=== PATIENT | female | born 1955 | race Two or more races ===

== ENCOUNTER 2023-10-05 22:12 | Inpatient (IN) | payer OTHER ==
[~2023-10-05] VITALS: Ht 167.6 cm; Wt 100.6 kg
[2023-10-06] VITALS (9 sets, daily range): BP systolic 110–148; BP diastolic 60–78; PULSE 52–70; RESP 14–20; TEMP 97.7–98.8; O2SAT 94–99
[2023-10-06] MEDS ORDERED: ONDANSETRON HCL 4 MG/2 ML VIAL IV PRN (00:45)
[2023-10-06] MEDS: SODIUM CHLORIDE 0.9% 1,000 ML IV SCH (00:45)
[2023-10-06] MEDS ORDERED: HYDROcodone-ACET 5/325MG TAB PO PRN (00:45)
[2023-10-06] MEDS ORDERED: MORPHINE SULFATE INJ 2 MG/ml SYRG IV PRN (00:45)
[2023-10-06] MEDS ORDERED: DEXTROSE (50%) 50ML SYRG IV PRN (00:45)
[2023-10-06] MEDS ORDERED: NITROGLYCERIN 0.4 MG SL TAB SL PRN (00:45)
[2023-10-06] MEDS: InsuLIN REG 1unit/0.01ml Soln (100units/ml) SC SCH (06:03)
[2023-10-06] MEDS: ACCU-CHEK COMFORT CURVE STRIP VI SCH (06:03)
[2023-10-06] MEDS ORDERED: METF-370 PO (06:29)
[2023-10-06] MEDS ORDERED: VORT1TAB3 PO (06:29)
[2023-10-06] MEDS ORDERED: ASPI-325 PO (06:29)
[2023-10-06] MEDS ORDERED: ATOR10TA52 PO (06:29)
[2023-10-06] MEDS ORDERED: METO-159 PO (06:29)
[2023-10-06] MEDS ORDERED: LISI-275 PO (06:29)
[2023-10-06 06:48] LABS: Basophils # (auto) 0.1 10 ^3/uL (0-0.2); Basophils % (auto) 0.7 % (0.0-2.0); Eosinophils # (auto) 0.4 10 ^3/uL (0-0.8); Eosinophils % (auto) 4.8 % (0.0-7.0); Hematocrit 33.5 % (36.0-46.0); Hemoglobin 11.4 g/dL (12.2-16.2); Lymphocytes # (auto) 2.6 10 ^3/uL (0.4-5.4); Lymphocytes % (auto) 29.4 % (10.0-50.0); Mean Corpuscular Hemoglobin 33.3 pg (28.0-32.0); Mean Corpuscular Volume 98.1 fL (80.0-100.0); Monocytes # (auto) 0.5 10 ^3/uL (0-1.3); Monocytes % (auto) 5.9 % (0.0-12.0); Neutrophils # (auto) 5.3 10 ^3/uL (1.6-8.6); Neutrophils % (auto) 59.2 % (37.0-80.0); Nucleated Red Blood Cells % 0.2 %; Red Blood Cells 3.41 10^6/uL (4.0-5.20); Red Cell Distribution Width 12.9 % (11.8-14.3); White Blood Cell 8.9 10^3/uL (4.4-10.8)
[2023-10-06 07:01] LABS: Anion Gap 7 (5-15); Carbon Dioxide 24 mmol/L (20-30); Chloride 109 mmol/L (98-107); Potassium 2.9 mmol/L (3.5-5.1); Sodium 140 mmol/L (136-145)
[2023-10-06 07:03] LABS: Calcium 8.8 mg/dL (8.5-10.1)
[2023-10-06 07:07] LABS: BUN/Creatinine Ratio 13.4 (10.0-20.0); Blood Urea Nitrogen 15 mg/dL (9-23); Glucose 101 mg/dL (74-106)
[2023-10-06] MEDS: HEPARIN SODIUM (PORCINE) 5000 UNITS/ML 1ML VIAL SC SCH (10:23)
[2023-10-06] MEDS ORDERED: HYDR25TA4 PO (10:35)
[2023-10-06] MEDS: POTASSIUM EFFERVESENT TAB 25 MEQ PO ONE (12:41)
[2023-10-06] MEDS: POTASSIUM CHL 20MEQ/100ML 100 ML IV SCH (12:41)
[2023-10-06] MEDS: POTASSIUM CHL 20MEQ/100ML 100 ML IV ONE (20:30)
[2023-10-06] MEDS: MAGNESIUM OXIDE 400 MG TAB PO SCH (21:57)
[2023-10-06] MEDS: CHOLESTYRAMINE 4 GM POWDER PO SCH (21:58)
[2023-10-07] VITALS (10 sets, daily range): BP systolic 126–166; BP diastolic 69–91; PULSE 55–78; RESP 16–20; TEMP 97.9–98.5; O2SAT 93–99
[2023-10-07 07:22] LABS: Basophils # (auto) 0 10 ^3/uL (0-0.2); Basophils % (auto) 0.8 % (0.0-2.0); Eosinophils # (auto) 0.4 10 ^3/uL (0-0.8); Hematocrit 33.1 % (36.0-46.0); Hemoglobin 11.5 g/dL (12.2-16.2); Lymphocytes # (auto) 2.2 10 ^3/uL (0.4-5.4); Lymphocytes % (auto) 35.2 % (10.0-50.0); Mean Corpuscular Hemoglobin 33.7 pg (28.0-32.0); Mean Corpuscular Hgb Conc. 34.7 g/dL (32.0-36.0); Monocytes # (auto) 0.4 10 ^3/uL (0-1.3); Neutrophils # (auto) 3.2 10 ^3/uL (1.6-8.6); Red Blood Cells 3.41 10^6/uL (4.0-5.20); White Blood Cell 6.2 10^3/uL (4.4-10.8)
[2023-10-07 07:33] LABS: Chloride 109 mmol/L (98-107); Potassium 3.5 mmol/L (3.5-5.1); Sodium 141 mmol/L (136-145)
[2023-10-07 07:34] LABS: Anion Gap 9 (5-15); Carbon Dioxide 23 mmol/L (20-30)
[2023-10-07 07:35] LABS: Calcium 8.9 mg/dL (8.5-10.1)
[2023-10-07 07:40] LABS: Glucose 99 mg/dL (74-106)
[2023-10-07 07:41] LABS: BUN/Creatinine Ratio 9.4 (10.0-20.0); Blood Urea Nitrogen 9 mg/dL (9-23)
[2023-10-07 07:50] LABS: CRP High Sensitivity 1.05 mg/dL (<1.0)
[2023-10-07 08:46] LABS: Erythrocyte Sedimentation Rate 34 mm/hr (0-20)
[2023-10-07] MEDS: DOCUSATE SOD 100 MG CAP PO PRN (10:19)
[2023-10-07 10:28] LABS: Urine Bacteria None Seen /hpf (None Seen)
[2023-10-07 11:17] LABS: Urine Blood Negative /uL (Negative); Urine Clarity Clear (Clear); Urine Color Colorless (Yellow); Urine Protein, UAD Negative (Negative); Urine Specific Gravity 1.009 (1.001-1.035); Urine Urobilinogen Normal (Negative); Urine WBC 1 /hpf (0 - 5)
[2023-10-07] MEDS: DOBUTamine 1000MCG/ML 100 ML IV ONE (15:25)
[2023-10-07] MEDS: DOBUTamine 1000MCG/ML 250 ML IV ONE (15:26)
[2023-10-07] MEDS: METOPROLOL TARTRATE 1MG/1ML-5ML VIAL IV ONE (15:33)
[2023-10-07] MEDS: ATROPINE SULF 0.5 MG/5ML SYR ONE (15:34)
[2023-10-08] VITALS (8 sets, daily range): BP systolic 130–163; BP diastolic 76–90; PULSE 57–71; RESP 16–20; TEMP 36.8; O2SAT 96–98
[2023-10-08 07:23] LABS: Basophils # (auto) 0.1 10 ^3/uL (0-0.2); Basophils % (auto) 0.8 % (0.0-2.0); Eosinophils # (auto) 0.4 10 ^3/uL (0-0.8); Hematocrit 33.1 % (36.0-46.0); Hemoglobin 11.5 g/dL (12.2-16.2); Lymphocytes # (auto) 2.1 10 ^3/uL (0.4-5.4); Lymphocytes % (auto) 28.8 % (10.0-50.0); Mean Corpuscular Hemoglobin 33.5 pg (28.0-32.0); Mean Corpuscular Hgb Conc. 34.8 g/dL (32.0-36.0); Mean Corpuscular Volume 96.4 fL (80.0-100.0); Monocytes # (auto) 0.5 10 ^3/uL (0-1.3); Monocytes % (auto) 6.5 % (0.0-12.0); Neutrophils # (auto) 4.2 10 ^3/uL (1.6-8.6); Neutrophils % (auto) 57.9 % (37.0-80.0); Red Blood Cells 3.43 10^6/uL (4.0-5.20); Red Cell Distribution Width 12.8 % (11.8-14.3); White Blood Cell 7.2 10^3/uL (4.4-10.8)
[2023-10-08 07:41] LABS: Anion Gap 9 (5-15); Carbon Dioxide 24 mmol/L (20-30); Chloride 108 mmol/L (98-107); Potassium 3.2 mmol/L (3.5-5.1); Sodium 141 mmol/L (136-145)
[2023-10-08 07:48] LABS: Blood Urea Nitrogen 9 mg/dL (9-23); Glucose 89 mg/dL (74-106)
[2023-10-08] MEDS: ACETAMINOPHEN 325 MG TAB PO PRN (10:25)
[2023-10-08] MEDS: POTASSIUM CHL 20 Meq TABLET PO ONE (14:48)
[2023-10-10 12:06] LABS: t-Transglutaminase (tTG) IgA <2 U/mL (0-3); t-Transglutaminase (tTG) IgG <2 U/mL (0-5)
== END 2023-10-08 17:53 | disposition home or self-care (01) | DRG 312 ==
LOC: TELE-WESTW 10-06 00:38
PROVIDERS: ADMIT Nurse Practitioner Family; ATTEND Internal Medicine
DX: I95.1 Orthostatic hypotension (principal); N17.0 Acute kidney failure with tubular necrosis; E11.649 Type 2 diabetes mellitus with hypoglycemia without coma; E78.00 Pure hypercholesterolemia, unspecified; E86.0 Dehydration; E87.6 Hypokalemia; I10 Essential (primary) hypertension; K58.0 Irritable bowel syndrome with diarrhea; E66.01 Morbid (severe) obesity due to excess calories; F32.A Depression, unspecified; Z88.0 Allergy status to penicillin; Z82.49 Family history of ischemic heart disease and other diseases of the circulatory system; Z98.84 Bariatric surgery status; Z68.35 Body mass index [BMI] 35.0-35.9, adult
CPT/HCPCS: 36415; 80048; 81001; 82962; 84443; 85025; 85652; 86141; 87081; 93017; 93306; 93350; 97110; 97116; 97163; 97530; G0378; J0461; J3480